=== PATIENT | female | born 1980 | race Native Hawaiian/Other Pacific Islander ===

== ENCOUNTER 2019-09-21 21:40 | Emergency (ER) | payer OTHER ==
[~2019-09-21] VITALS: Ht 165.1 cm; Wt 44.5 kg
[2019-09-21 22:08] LABS: PLATELET COUNT 207 K/uL (152-353)
[2019-09-21 22:10] LABS: POTASSIUM 3.5 mmol/L (3.6-5.2); SODIUM 141 mmol/L (136-145)
[2019-09-21 23:05] VITALS: BP 128/88; TEMP 98.5
== END 2019-09-21 23:05 | disposition home or self-care (01) ==
LOC: ED 21:40
PROVIDERS: Emergency Medicine Emergency Medical Services
DX: R07.89 Other chest pain (principal)
CPT/HCPCS: 80053; 84484; 85027; 93005; 96374; 99284; J1200